=== PATIENT | male | born 1960 | race American Indian/Alaskan Native ===

== ENCOUNTER 2020-06-15 15:47 | Outpatient (CLI) | payer OTHER ==
--- NOTE | 2020-06-15 17:57 | XRay Report ---
LATERAL KNEES 1 VIEW STANDING INDICATION / CLINICAL INFORMATION: BILATERAL KNEE PAIN. COMPARISON: None available. FINDINGS: Moderate lateral joint space narrowing on the left. No other significant skeletal abnormality Signer Name: Godwin Smith MD FACJose E Signed: 06/15/2020 5:52 PM Workstation Name: [id number]
== END 2020-06-15 15:48 | disposition home or self-care (01) ==
LOC: XRAY 15:47
PROVIDERS: ATTEND Orthopaedic Surgery
DX: M17.12 Unilateral primary osteoarthritis, left knee (principal); M25.561 Pain in right knee
CPT/HCPCS: 73565